=== PATIENT | male | born 1970 | race Caucasian/White ===

== ENCOUNTER 2017-10-19 17:38 | Emergency (ER) | payer MEDICARE, OTHER ==
[2017-10-19] MEDS ORDERED: Acetaminophen/Codeine 30-300mg Tablet ONE (18:19)
[2017-10-19] MEDS ORDERED: Bacitracin Zinc 1 Packet ONE (18:20)
== END 2017-10-19 19:17 | disposition home or self-care (01) ==
LOC: ERS 17:38
DX: T23.162A Burn of first degree of back of left hand, initial encounter (principal); X10.0XXA Contact with hot drinks, initial encounter
CPT/HCPCS: 16000